=== PATIENT | female | born 1960 | race Caucasian/White ===

== ENCOUNTER 2021-01-03 13:26 | Inpatient (IN) ==
[2021-01-03 14:35] LABS: ABS Basophils 0.1 10^3/ul (0-0.2); ABS Eosinophils 0.1 10^3/ul (0-0.6); ABS Lymphocytes 1.6 10^3/ul (1.0-4.8); ABS Monocytes 0.5 10^3/ul (0-0.8); ABS Neutrophils 3.5 10^3/ul (1.5-7.7); Eosinophil % 1.2 %; Hematocrit 43 % (35-47); Hemoglobin 14.9 g/dL (12.0-16.0); Lymphocyte % 27.3 %; Mean Corpuscular HGB Conc 35 g/dL (31-36); Mean Corpuscular Hemoglobin 33 pg (27-31); Mean Corpuscular Volume 95 fL (80-97); Nucleated Red Blood Cells % 0.1; Platelet Count 236 10^3/uL (150-450); Red Blood Count 4.47 10^6 /uL (3.70-4.87); Red Cell Distribution Width 12 % (10-15); White Blood Count 5.8 10^3/uL (3.5-10.8)
[2021-01-03 14:46] LABS: ALT 109 U/L (7-52); AST 58 U/L (13-39); Albumin 4.5 g/dL (3.2-5.2); Albumin/Globulin Ratio 1.9 (1-3); Alkaline Phosphatase 46 U/L (35-149); Anion Gap 10 mmol/L (2-11); Blood Urea Nitrogen 17 mg/dL (6-24); CO2 Carbon Dioxide 23 mmol/L (22-32); Calcium 9.6 mg/dL (8.6-10.3); Chloride 104 mmol/L (101-111); EGFR African American 74.4 (>60); EGFR Non-African American 61.5 (>60); Globulin 2.4 g/dL (2-4); Glucose 109 mg/dL (70-100); Potassium 3.9 mmol/L (3.5-5.0); Sodium 137 mmol/L (135-145); Total Protein 6.9 g/dL (6.4-8.9)
[2021-01-03 14:51] LABS: Urine Appearance Clear; Urine Bilirubin Negative (Negative); Urine Blood 1+ (Negative); Urine Color Yellow; Urine Glucose Negative (Negative); Urine Ketones Negative (Negative); Urine Nitrite Negative (Negative); Urine Protein Negative (Negative); Urine Specific Gravity 1.017 (1.002-1.030); Urine Urobilinogen Negative (Negative)
[2021-01-03 15:07] LABS: Urine Bacteria 1+ (Absent); Urine Red Blood Cell Trace(0-2/hpf) (Absent); Urine Squamous Epithelial Cell Present (Absent); Urine White Blood Cell Trace(0-5/hpf) (Absent)
[2021-01-03 15:16] LABS: TSH Ultra Thyroid Stim Horm 2.39 mcIU/mL (0.34-5.60)
[2021-01-03 15:24] LABS: Acetaminophen < 15 mcg/mL; Alcohol, S < 10 mg/dL (<10); Salicylate < 2.50 mg/dL (<30)
[2021-01-03 15:26] LABS: Urine Benzodiazepine Screen Presumptive Positive (None Detect); Urine Cannabinoids Screen None Detected (None Detect); Urine Opiates Screen None Detected (None Detect)
[2021-01-03] MEDS ORDERED: Al Hydrox/Mg Hydrox/Simet LIQ 30 ML UDC PO PRN (20:55)
[2021-01-03] MEDS ORDERED: Saline NASAL SPRAY 0.65% BTL BOTH NARES PRN (21:26)
[2021-01-03] MEDS ORDERED: Senna TAB 8.6 mg TAB PO SCH (23:00)
[2021-01-04] MEDS: Cholecalciferol (VIT D3) 1,000 unit TAB PO SCH (07:47)
[2021-01-04] MEDS: Vitamin THERAPEUTIC TAB PO SCH (07:56)
[2021-01-04] MEDS ORDERED: CMCS:Vilazodone 40 mg TAB (NF) PO SCH (09:00)
[2021-01-04] MEDS ORDERED: ZINC 50 MG PO SCH (09:00)
[2021-01-04] MEDS ORDERED: Mometasone/Formoter 100/5 MDI INH SCH (09:00)
[2021-01-04] MEDS: POTASSIUM CHLORIDE 8 MEQ PO SCH (20:49)
[2021-01-04] MEDS: Mometasone/Formoter 100/5 MDI INH SCH (20:50)
[2021-01-04] MEDS ORDERED: Senna TAB 8.6 mg TAB PO SCH (21:00)
[2021-01-05] MEDS: Cholecalciferol (VIT D3) 1,000 unit TAB PO SCH (08:12)
[2021-01-05] MEDS: Vitamin THERAPEUTIC TAB PO SCH (08:15)
[2021-01-05] MEDS: Mometasone/Formoter 100/5 MDI INH SCH (08:18)
[2021-01-05] MEDS: POTASSIUM CHLORIDE 8 MEQ PO SCH (08:19)
[2021-01-05 08:44] LABS: HDL Cholesterol 55.1 mg/dL
[2021-01-05] MEDS ORDERED: Vilazodone 40 mg TAB (NF) PO SCH (09:00)
[2021-01-05] MEDS ORDERED: CRANBERRY EXTRACT 500 MG PO SCH (09:00)
[2021-01-05 10:41] VITALS: BP 129/77
[2021-01-05] MEDS ORDERED: Potassium Chlor 20 meq TAB.ER PO SCH (21:00)
[2021-01-10] MEDS ORDERED: Alendronate 70 mg TAB (NF) PO SCH (09:00)
== END 2021-01-05 12:11 | disposition home or self-care (01) | DRG 882 ==
LOC: ED 13:26 → BSU 22:22
PROVIDERS: ADMIT Psychiatry & Neurology Psychiatry; ATTEND Psychiatry & Neurology Psychiatry

== ENCOUNTER 2021-01-22 16:51 | Inpatient (IN) ==
[2021-01-22 17:41] LABS: ABS Basophils 0.1 10^3/ul (0-0.2); ABS Eosinophils 0.2 10^3/ul (0-0.6); ABS Lymphocytes 2.8 10^3/ul (1.0-4.8); ABS Monocytes 0.9 10^3/ul (0-0.8); ABS Neutrophils 3.3 10^3/ul (1.5-7.7); Eosinophil % 2.4 %; Hematocrit 46 % (35-47); Hemoglobin 15.6 g/dL (12.0-16.0); Lymphocyte % 38.9 %; Mean Corpuscular HGB Conc 34 g/dL (31-36); Mean Corpuscular Hemoglobin 33 pg (27-31); Mean Corpuscular Volume 96 fL (80-97); Mean Platelet Volume 9.3 fL (7.4-10.4); Nucleated Red Blood Cells % 0.1; Platelet Count 269 10^3/uL (150-450); Red Blood Count 4.82 10^6 /uL (3.70-4.87); Red Cell Distribution Width 12 % (10-15); White Blood Count 7.2 10^3/uL (3.5-10.8)
[2021-01-22 17:44] LABS: Urine Appearance Cloudy; Urine Bilirubin Negative (Negative); Urine Blood 1+ (Negative); Urine Color Yellow; Urine Glucose Negative (Negative); Urine Ketones Negative (Negative); Urine Nitrite Negative (Negative); Urine Protein Negative (Negative); Urine Specific Gravity 1.016 (1.002-1.030); Urine Urobilinogen Negative (Negative)
[2021-01-22 17:52] LABS: Urine Bacteria 1+ (Absent); Urine Red Blood Cell 2+(6-10/hpf) (Absent); Urine Squamous Epithelial Cell Present (Absent); Urine White Blood Cell Trace(0-5/hpf) (Absent)
[2021-01-22 17:56] LABS: ALT 135 U/L (7-52); AST 63 U/L (13-39); Albumin 4.7 g/dL (3.2-5.2); Albumin/Globulin Ratio 1.9 (1-3); Alkaline Phosphatase 47 U/L (35-149); Anion Gap 12 mmol/L (2-11); Blood Urea Nitrogen 18 mg/dL (6-24); CO2 Carbon Dioxide 23 mmol/L (22-32); Calcium 9.7 mg/dL (8.6-10.3); Chloride 104 mmol/L (101-111); EGFR African American 74.4 (>60); EGFR Non-African American 61.5 (>60); Globulin 2.5 g/dL (2-4); Glucose 130 mg/dL (70-100); Potassium 3.9 mmol/L (3.5-5.0); Sodium 139 mmol/L (135-145); Total Protein 7.2 g/dL (6.4-8.9)
[2021-01-22 18:02] LABS: Urine Benzodiazepine Screen Presumptive Positive (None Detect); Urine Cannabinoids Screen None Detected (None Detect); Urine Opiates Screen None Detected (None Detect)
[2021-01-22 18:09] LABS: Acetaminophen < 15 mcg/mL; Alcohol, S < 10 mg/dL (<10); Salicylate < 2.50 mg/dL (<30)
[2021-01-22 18:24] LABS: TSH Ultra Thyroid Stim Horm 1.11 mcIU/mL (0.34-5.60)
[2021-01-23] MEDS ORDERED: Al Hydrox/Mg Hydrox/Simet LIQ 30 ML UDC PO PRN (12:07)
[2021-01-23] MEDS: Senna TAB 8.6 mg TAB PO SCH (19:59)
[2021-01-23] MEDS: Mometasone/Formoter 100/5 MDI INH SCH (20:00)
[2021-01-24] MEDS: CMCS: Vilazodone 40 mg TAB (NF) PO SCH (08:57)
[2021-01-24] MEDS: Mometasone/Formoter 100/5 MDI INH SCH ×2 (08:58→21:11)
[2021-01-24] MEDS ORDERED: Pantoprazole 20 mg TAB (NF) PO SCH (09:00)
[2021-01-24] MEDS ORDERED: Vilazodone 40 mg TAB (NF) PO SCH (09:00)
[2021-01-24] MEDS: Potassium Chlor 20 meq TAB.ER PO SCH (21:08)
[2021-01-24] MEDS: Senna TAB 8.6 mg TAB PO SCH (21:08)
[2021-01-25] MEDS: CMCS: Vilazodone 40 mg TAB (NF) PO SCH (08:35)
[2021-01-25] MEDS: Potassium Chlor 20 meq TAB.ER PO SCH ×2 (08:35→20:08)
[2021-01-25] MEDS: Mometasone/Formoter 100/5 MDI INH SCH ×2 (08:39→20:08)
[2021-01-25] MEDS: Senna TAB 8.6 mg TAB PO SCH (20:09)
[2021-01-26] MEDS: Mometasone/Formoter 100/5 MDI INH SCH ×2 (08:57→21:05)
[2021-01-26] MEDS: CMCS: Vilazodone 40 mg TAB (NF) PO SCH (08:58)
[2021-01-26] MEDS: Potassium Chlor 20 meq TAB.ER PO SCH ×2 (09:01→21:05)
[2021-01-26] MEDS: Senna TAB 8.6 mg TAB PO SCH (21:05)
[2021-01-27] MEDS: Mometasone/Formoter 100/5 MDI INH SCH ×2 (08:11→20:41)
[2021-01-27] MEDS: Potassium Chlor 20 meq TAB.ER PO SCH ×2 (08:12→20:43)
[2021-01-27] MEDS: CMCS: Vilazodone 40 mg TAB (NF) PO SCH (08:14)
[2021-01-27] MEDS: Senna TAB 8.6 mg TAB PO SCH (20:43)
[2021-01-28] MEDS: Mometasone/Formoter 100/5 MDI INH SCH ×2 (08:21→20:19)
[2021-01-28] MEDS: Potassium Chlor 20 meq TAB.ER PO SCH ×3 (08:22→20:16)
[2021-01-28] MEDS: CMCS: Vilazodone 40 mg TAB (NF) PO SCH (08:22)
[2021-01-28] MEDS: Senna TAB 8.6 mg TAB PO SCH (20:19)
[2021-01-29 08:39] VITALS: BP 139/62
[2021-01-29] MEDS: Potassium Chlor 20 meq TAB.ER PO SCH (08:47)
[2021-01-29] MEDS: CMCS: Vilazodone 40 mg TAB (NF) PO SCH (08:49)
[2021-01-29] MEDS: Mometasone/Formoter 100/5 MDI INH SCH (08:49)
== END 2021-01-29 12:45 | disposition home or self-care (01) | DRG 885 ==
LOC: ED 16:51 → BSU 01-23 16:08
PROVIDERS: ADMIT Psychiatry & Neurology Psychiatry; ATTEND Psychiatry & Neurology Psychiatry